=== PATIENT | female | born 2000 ===

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

== ENCOUNTER → 2019-10-29 | Outpatient (CLI) | payer OTHER ==
[2019-10-29 17:25] LABS: BASOPHILS ABSOLUTE AUTO 0.07 K/mm3 (0.00-0.23); BASOPHILS PERCENT AUTO 1 % (0-2); EOSINOPHILS ABSOLUTE AUTO 0.17 K/mm3 (0.00-0.68); EOSINOPHILS PERCENT AUTO 2 % (0-6); Hematocrit 37.5 % (33.0-51.0); Hemoglobin 12.8 g/dL (11.5-16.0); IMMATURE GRAN ABSOLUTE AUTO 0.04 K/mm3 (0.00-0.10); IMMATURE GRAN PERCENT AUTO 0 % (0-1); LYMPHOCYTES ABSOLUTE AUTO 3.25 K/mm3 (0.84-5.20); LYMPHOCYTES PERCENT AUTO 30 % (21-46); MONOCYTES ABSOLUTE AUTO 0.72 K/mm3 (0.16-1.47); MONOCYTES PERCENT AUTO 7 % (4-13); Mean Corpuscular HGB 27.9 pg (26.0-34.0); Mean Corpuscular HGB Conc 34.1 g/dL (31.5-36.5); Mean Corpuscular Volume 82 fL (80-100); Mean Platelet Volume 9.2 fL (9.1-12.4); NEUTROPHILS ABSOLUTE AUTO 6.77 K/mm3 (1.96-9.15); NEUTROPHILS PERCENT AUTO 62 % (41-73); Platelet Count 513 K/mm3 (150-400); RDW Coefficient Variation 13.9 % (11.7-14.2); RDW Standard Deviation 41.1 fL (35.1-46.3); Red Blood Cell Count 4.59 M/mm3 (3.80-5.20); White Blood Cell Count 11.02 K/mm3 (4.00-11.30)
[2019-10-29 17:40] LABS: Alanine Aminotransfer (ALT/SGP 38 U/L (12-78); Albumin, Blood 3.5 g/dL (3.4-5.0); Albumin/Globulin Ratio 0.6 (0.8-1.8); Alk Phos 138 U/L (40-126); Anion Gap 12 mmol/L (6-16); Aspartate Aminotrans (AST/SGOT 21 U/L (12-37); Bilirubin, Total 0.3 mg/dL (0.1-1.0); Blood Urea Nitrogen 13 mg/dL (8-24); Bun/Creatinine Ratio 14.4 (12.0-20.0); CO2, Blood 25 mmol/L (21-32); Calcium, Blood 9.3 mg/dL (8.5-10.1); Chloride, Blood 105 mmol/L (98-108); Globulin, Blood 5.4 g/dL (2.2-4.0); Glomerular Filtration Rate >60 (60-); Glucose, Blood 95 mg/dL (70-99); Potassium, Blood 4.3 mmol/L (3.5-5.5); Sodium, Blood 142 mmol/L (136-145); Total Protein, Blood 8.9 g/dL (6.4-8.2)
== END ==
LOC: LAB EV 17:19 → LAB SHORT 17:19
PROVIDERS: Physician Assistant
DX: R10.9 Unspecified abdominal pain (principal)
CPT/HCPCS: 80053; 83690; 85025

== ENCOUNTER 2020-03-16 22:07 | Emergency (ER) | payer OTHER ==
[~2020-03-16] VITALS: Ht 149.9 cm; Wt 74.8 kg
[2020-03-16 22:49] LABS: BASOPHILS ABSOLUTE AUTO 0.08 K/mm3 (0.00-0.23); BASOPHILS PERCENT AUTO 0 % (0-2); EOSINOPHILS ABSOLUTE AUTO 0.18 K/mm3 (0.00-0.68); EOSINOPHILS PERCENT AUTO 1 % (0-6); Hematocrit 40.2 % (33.0-51.0); Hemoglobin 12.9 g/dL (11.5-16.0); Mean Corpuscular HGB 26.5 pg (26.0-34.0); Mean Corpuscular HGB Conc 32.1 g/dL (31.5-36.5); Mean Corpuscular Volume 83 fL (80-100); Mean Platelet Volume 9.1 fL (9.1-12.4); Platelet Count 540 K/mm3 (150-400); RDW Coefficient Variation 13.2 % (11.7-14.2); RDW Standard Deviation 39.8 fL (35.1-46.3); Red Blood Cell Count 4.86 M/mm3 (3.80-5.20); White Blood Cell Count 19.37 K/mm3 (4.00-11.30)
[2020-03-16 22:54] LABS: IMMATURE GRAN PERCENT AUTO 1 % (0-1); LYMPHOCYTES ABSOLUTE AUTO 4.22 K/mm3 (0.84-5.20); LYMPHOCYTES PERCENT AUTO 22 % (21-46); MONOCYTES ABSOLUTE AUTO 1.01 K/mm3 (0.16-1.47); MONOCYTES PERCENT AUTO 5 % (4-13); NEUTROPHILS ABSOLUTE AUTO 13.78 K/mm3 (1.96-9.15); NEUTROPHILS PERCENT AUTO 71 % (41-73)
[2020-03-16 23:05] LABS: Alanine Aminotransfer (ALT/SGP 31 U/L (12-78); Albumin, Blood 3.5 g/dL (3.4-5.0); Albumin/Globulin Ratio 0.6 (0.8-1.8); Alk Phos 150 U/L (50-136); Anion Gap 7 mmol/L (6-16); Aspartate Aminotrans (AST/SGOT 22 U/L (12-37); Bilirubin, Total 0.3 mg/dL (0.1-1.0); Blood Urea Nitrogen 14 mg/dL (8-24); Bun/Creatinine Ratio 20.3 (12.0-20.0); CO2, Blood 25 mmol/L (21-32); Calcium, Blood 8.9 mg/dL (8.5-10.1); Chloride, Blood 108 mmol/L (98-108); Creatinine, Blood 0.69 mg/dL (0.40-1.00); Globulin, Blood 5.4 g/dL (2.2-4.0); Glomerular Filtration Rate >60 (60-); Glucose, Blood 80 mg/dL (70-99); Potassium, Blood 3.5 mmol/L (3.5-5.5); Sodium, Blood 140 mmol/L (136-145); Total Protein, Blood 8.9 g/dL (6.4-8.2); Troponin I <0.015 ng/mL (0.000-0.040)
[2020-03-17 00:44] LABS: Source, Urine Voided
[2020-03-17 00:46] LABS: Bilirubin, Urine Neg (Neg); Blood, Urine Neg (Neg); Glucose Qualitative, Urine Neg (Neg); Ketones, Urine Neg (Neg); Leukocyte Esterase, Urine Neg (Neg); Nitrite, Urine Neg (Neg); Protein, Urine Neg (Neg); Specific Gravity, Urine 1.015 (1.003-1.022); Urobilinogen, Urine NORM (Normal)
[2020-03-17 00:59] LABS: Appearance, Urine Clear (Clear); Color, Urine Yellow (P-Yellow)
[2020-03-17 02:20] LABS: Source, Urine Voided
[2020-03-17] MEDS ORDERED: Pepcid20 MG PO (02:23)
[2020-03-17 02:24] LABS: Bilirubin, Urine Neg (Neg); Blood, Urine Neg (Neg); Glucose Qualitative, Urine Neg (Neg); Ketones, Urine 3+ (Neg); Leukocyte Esterase, Urine Neg (Neg); Nitrite, Urine Neg (Neg); Protein, Urine 1+ (Neg); Urobilinogen, Urine NORM (Normal)
[2020-03-17 02:25] LABS: Appearance, Urine Clear (Clear); Color, Urine Yellow (P-Yellow)
[2020-03-17 02:30] LABS: Bacteria Not Seen /hpf; Red Blood Cells, Urine Not Seen /hpf (0-2); Squamous Epithelial Cells Few /hpf (Few); White Blood Cells, Urine Not Seen /hpf (0-5)
[2020-03-17] MEDS ORDERED: KEFLEX500 MG PO (02:31)
== END 2020-03-17 02:39 | disposition home or self-care (01) ==
LOC: ER 22:07
PROVIDERS: Emergency Medicine
DX: K29.70 Gastritis, unspecified, without bleeding (principal); N39.0 Urinary tract infection, site not specified; R07.9 Chest pain, unspecified; D72.829 Elevated white blood cell count, unspecified
CPT/HCPCS: 71046; 74177; 76705; 80053; 81001; 81003; 81025; 83605; 83690; 84484; 85025; 85379; 93005; 93010; 96361; 96365; 96375; 99285-25; J0696; J7030; Q9967

== ENCOUNTER 2023-03-06 18:43 | Emergency (ER) | payer OTHER ==
[~2023-03-06] VITALS: Ht 149.9 cm; Wt 86.2 kg
[~2023-03-06 18:43] MED LIST: KEFLEX500 MG PO; Pepcid20 MG PO
[2023-03-06 18:45] VITALS: BP 123/93
== END 2023-03-06 19:27 | disposition home or self-care (01) ==
LOC: ER 18:43
DX: R07.89 Other chest pain (principal)
CPT/HCPCS: 71046; 99283-25

== ENCOUNTER 2023-03-24 06:33 | Day surgery (SDC) | payer OTHER ==
[2023-03-24] VITALS (15 sets, daily range): BP systolic 110–130; BP diastolic 65–92
[~2023-03-24] VITALS: Ht 149.9 cm; Wt 90.5 kg
[~2023-03-24 06:33] MED LIST changes: +TRAZ50 PO
[2023-03-24] MEDS ORDERED: SERTRALINE HCL150 M1 PO (06:52)
[2023-03-24] MEDS ORDERED: ABILIFY MYCITE5 M2 PO (06:53)
[2023-03-24] MEDS ORDERED: BUSP10 PO (06:53)
--- NOTE | 2023-03-24 07:38 | NUR ---
Ambulatory in Day Surgery History, Chart, Medications and Allergies reviewed before start of procedure. Pre-Op teaching done. Pt verbalizes understanding.
--- NOTE | 2023-03-24 11:07 | NUR ---
PATIENT LAYING IN GURNEY. TEARFUL. C/O 3/10 CRAMPING PAIN TO PELVIC AREA BILAT. DENIES NASUEA AT THIS TIME. SURGICAL INCISION SITES X3 TO ABDOMEN DRY WITH NO VISIBLE DRAINAGE, SWELLING OR ERYTHEMA NOTED. SURGICAL GLUE CLOSURE INTACT. PATIENT TAKING SIPS OF JUICE. PLAN TO GIVE ORAL ANALGESIC PER ORDER. BREATHING RA.
--- NOTE | 2023-03-24 11:14 | NUR ---
LAMBERT PAD HAS LESS THAN QUARTER SIZE RED DRAINAGE NOTED. NO DRAINAGE TO WELSH PAD NOTED.
--- NOTE | 2023-03-24 11:28 | NUR ---
PATIENT STATES SHE FEELS LIKE SHE IS BLEEDING. CHECKED LAMBERT PAD. THERE IS APPROX 10% OF PAD SATURATED WITH RED DRAINAGE AND APPROX 2X1 INCHES OF RED DRAINAGE NOTED TO WELSH PAD. WILL CONTINUE TO MONITOR VAGINAL DRAINAGE. ANALGESIC GIVEN FOR C/O PAIN. NO OTHER C/O VERBALIZED.
--- NOTE | 2023-03-24 12:04 | NUR ---
NO CHANGE TO LAMBERT PAD. PATIENT UP TO STANDING TO GO TO BR. GAIT STEADY. REPORT GIVEN TO DENISE ALMANZA, WHO IS TAKING PATINET TO BR TO VOID. CATHETER HAD BE REMOVED PRIOR TO PATIENT COMING TO STEP RECOVERY.
--- NOTE | 2023-03-24 12:05 | NUR ---
1155- LATE ENTRY DR GARCIA AT BEDSIDE DISCUSSING RESULTS OF SURGERY AND DISCHARGE INSTRUCTIONS WITH PATIENT HER HER SIGNIFICANT OTHER, WHO IS AT BEDSIDE.
--- NOTE | 2023-03-24 12:15 | NUR ---
PT UP TO VOID. AMBULATION TOLERATED WELL, BUT PT FEELING A LITTLE WEAK. INCISIONS ARE C/D/I. UNDERWEAR AND NEW LAMBERT PAD GIVEN.
--- NOTE | 2023-03-24 12:27 | NUR ---
Discharge instructions reviewed with patient. Patient verbalizes understanding. Copy given to patient to take home. Patient States Post-Procedure ride home has been arranged.
== END 2023-03-24 12:32 | disposition home or self-care (01) ==
LOC: ORSCMMR 06:33 → ORD 08:00 → ORSCMMR 08:00 → ORD 04-28 12:00
PROVIDERS: Obstetrics & Gynecology
PROC: 0DQN4ZZ Repair Sigmoid Colon, Percutaneous Endoscopic Approach (ICD-10-PCS; principal; 2023-03-24 08:00)
PROC: 0U5F4ZZ Destruction of Cul-de-sac, Percutaneous Endoscopic Approach (ICD-10-PCS; principal; 2023-03-24 08:00)
PROC: 0U554ZZ Destruction of Right Fallopian Tube, Percutaneous Endoscopic Approach (ICD-10-PCS; principal; 2023-03-24 08:00)
DX: N92.1 Excessive and frequent menstruation with irregular cycle (principal); N94.6 Dysmenorrhea, unspecified; N94.10 Unspecified dyspareunia; R10.2 Pelvic and perineal pain; N80.329 Endometriosis of the posterior cul-de-sac, unspecified depth; N83.8 Other noninflammatory disorders of ovary, fallopian tube and broad ligament; K91.71 Accidental puncture and laceration of a digestive system organ or structure during a digestive system procedure; Y65.8 Other specified misadventures during surgical and medical care; F32.A Depression, unspecified; E66.01 Morbid (severe) obesity due to excess calories; Z68.41 Body mass index [BMI] 40.0-44.9, adult; Z79.899 Other long term (current) drug therapy
CPT/HCPCS: 88305; A9270; J0690; J2250; J2704; J2765; J3010; J7120

== ENCOUNTER 2023-06-18 23:25 | Emergency (ER) | payer OTHER ==
[~2023-06-18] VITALS: Ht 149.9 cm; Wt 93.0 kg
[~2023-06-18 23:25] MED LIST changes: +ABILIFY MYCITE5 M2 PO; +BUSP10 PO; +SERTRALINE HCL150 M1 PO
[2023-06-19 00:56] LABS: Source, Urine Clean Catch
[2023-06-19 01:10] LABS: Bilirubin, Urine Neg (Neg); Blood, Urine 5+ (Neg); Glucose Qualitative, Urine Neg (Neg); Ketones, Urine Neg (Neg); Leukocyte Esterase, Urine Neg (Neg); Nitrite, Urine Neg (Neg); Protein, Urine Neg (Neg); Urobilinogen, Urine NORM (Normal)
[2023-06-19 01:17] LABS: Appearance, Urine Clear (Clear); Color, Urine Yellow (P-Yellow)
[2023-06-19 01:18] LABS: Bacteria Rare /hpf; Red Blood Cells, Urine 0-2 /hpf (0-2); Squamous Epithelial Cells Rare /hpf (Few); White Blood Cells, Urine Not Seen /hpf (0-5)
[2023-06-19 01:43] VITALS: BP 118/77
== END 2023-06-19 01:43 | disposition home or self-care (01) ==
LOC: ER 23:25
PROVIDERS: Emergency Medicine
DX: O20.0 Threatened abortion (principal); Z3A.01 Less than 8 weeks gestation of pregnancy
CPT/HCPCS: 76801; 76817; 81001; 86900; 86901; 99284-25

== ENCOUNTER 2024-09-04 19:40 | Emergency (ER) | payer OTHER ==
[~2024-09-04] VITALS: Ht 149.9 cm; Wt 77.1 kg
[2024-09-04 19:47] VITALS: BP 132/95
[2024-09-04 20:20] LABS: BASOPHILS ABSOLUTE AUTO 0.04 K/mm3 (0.00-0.23); BASOPHILS PERCENT AUTO 0 % (0-2); EOSINOPHILS ABSOLUTE AUTO 0.18 K/mm3 (0.00-0.68); EOSINOPHILS PERCENT AUTO 2 % (0-6); Hematocrit 37.1 % (33.0-51.0); IMMATURE GRAN ABSOLUTE AUTO 0.02 K/mm3 (0.00-0.10); IMMATURE GRAN PERCENT AUTO 0 % (0-1); LYMPHOCYTES ABSOLUTE AUTO 2.99 K/mm3 (0.84-5.20); LYMPHOCYTES PERCENT AUTO 26 % (21-46); MONOCYTES PERCENT AUTO 8 % (4-13); Mean Corpuscular HGB 29.7 pg (26.0-34.0); Mean Corpuscular Volume 85 fL (80-100); Mean Platelet Volume 9.4 fL (9.1-12.4); NEUTROPHILS ABSOLUTE AUTO 7.28 K/mm3 (1.96-9.15); NEUTROPHILS PERCENT AUTO 64 % (41-73); Platelet Count 413 K/mm3 (150-400); RDW Coefficient Variation 13.2 % (11.7-14.2); RDW Standard Deviation 40.6 fL (35.1-46.3); Red Blood Cell Count 4.37 M/mm3 (3.80-5.20); White Blood Cell Count 11.41 K/mm3 (4.00-11.30)
[2024-09-04 20:41] LABS: Albumin, Blood 3.1 g/dL (3.4-5.0); Albumin/Globulin Ratio 0.7 (0.8-1.8); Bilirubin, Total 0.3 mg/dL (0.1-1.0); Bun/Creatinine Ratio 10.5 (12.0-20.0); Calcium, Blood 8.8 mg/dL (8.5-10.1); Creatinine, Blood 0.57 mg/dL (0.40-1.00); Globulin, Blood 4.7 g/dL (2.2-4.0); Potassium, Blood 3.7 mmol/L (3.5-5.5); Total Protein, Blood 7.8 g/dL (6.4-8.2)
[2024-09-04] MEDS ORDERED: Acetaminophen 325 MG TABLET PO ONE (21:25)
[2024-09-04 23:15] LABS: Source, Urine Clean Catch
[2024-09-04 23:25] LABS: Bilirubin, Urine Neg (Neg); Blood, Urine Neg (Neg); Glucose Qualitative, Urine Neg (Neg); Ketones, Urine 1+ (Neg); Leukocyte Esterase, Urine Neg (Neg); Nitrite, Urine Neg (Neg); Protein, Urine Neg (Neg); Specific Gravity, Urine 1.015 (1.003-1.022); Urobilinogen, Urine NORM (Normal)
[2024-09-04 23:33] LABS: Appearance, Urine Hazy (Clear); Color, Urine Yellow (P-Yellow)
[2024-09-04 23:34] LABS: Amorphous Heavy (0-Heavy); Bacteria Not Seen /hpf; Red Blood Cells, Urine Not Seen /hpf (0-2); Squamous Epithelial Cells Not Seen /hpf (Few); White Blood Cells, Urine Not Seen /hpf (0-5)
== END 2024-09-04 23:29 | disposition home or self-care (01) ==
LOC: ER 19:40
PROVIDERS: Student in an Organized Health Care Education/Training Program
DX: O99.891 Other specified diseases and conditions complicating pregnancy (principal); M94.0 Chondrocostal junction syndrome [Tietze]; R10.2 Pelvic and perineal pain; Z3A.12 12 weeks gestation of pregnancy; Z91.040 Latex allergy status
CPT/HCPCS: 76801; 80053; 81001; 84484; 84702; 85025; 93005; 93010; 99285-25; A9270